=== PATIENT | male | born 1975 | race Caucasian/White ===

== ENCOUNTER 2016-11-28 10:52 | Day surgery (SDC) | payer OTHER ==
[2016-11-28] VITALS (13 sets, daily range): BP systolic 96–111; BP diastolic 54–72; PULSE 50–69; RESP 16–18; Ht 160 cm; Wt 64.6 kg
[~2016-11-28] VITALS: Ht 160 cm; Wt 64.6 kg
[~2016-11-28 10:52] MED LIST: BUPIVACAINE 0.25% (MPF) 30 ML INJ INJ ONE; CEFAZOLIN 2 GM/50 ML (PMX) 50 ML IVPB ONE; POLYMYXIN/BACITRACIN 1L IRRIG IRR ONE; SOD CHLORIDE 0.9% 1,000 ML IV SCH
[2016-11-28] MEDS ORDERED: BUPIVACAINE 0.25% (MPF) 30 ML INJ ONE ×2 (13:20→13:24)
[2016-11-28] MEDS ORDERED: POLYMYXIN/BACITRACIN 1L IRRIG ONE (13:32)
[2016-11-28] MEDS ORDERED: FENTAnyl 50 MCG/ML VIAL ONE (13:53)
[2016-11-28] MEDS ORDERED: PROPOFOL 40 ML ONE (14:15)
[2016-11-28] MEDS ORDERED: NEOSTIGMINE 3 MG/3 ML SYRINGE ONE (14:15)
[2016-11-28] MEDS ORDERED: SUCCINYLCHOLINE CHLORIDE 100 MG/5 ML SYG IV ONE (14:15)
[2016-11-28] MEDS ORDERED: LIDOCAINE 2% (SDV) 5 ML INJ ONE (14:15)
[2016-11-28] MEDS ORDERED: CEFAZOLIN 1 GM INJ ONE (14:15)
[2016-11-28] MEDS ORDERED: ROCURONIUM 50 MG INJ ONE (14:15)
[2016-11-28] MEDS ORDERED: GLYCOPYRROLATE 0.4 MG INJ ONE (14:15)
[2016-11-28] MEDS ORDERED: ONDANSETRON 4 MG INJ IV PRN (14:30)
[2016-11-28] MEDS ORDERED: HYDROmorphONE (0.2 MG/ML) 10ML SYG IV PRN ×2 (14:30)
[2016-11-28] MEDS ORDERED: DIPHENHYDRAMINE 50 MG INJ IV PRN (14:30)
[2016-11-28] MEDS ORDERED: FENTAnyl 50 MCG/ML VIAL IV PRN ×2 (14:30)
[2016-11-28] MEDS ORDERED: MEPERIDINE 25 MG INJ IV PRN (14:30)
[2016-11-28] MEDS ORDERED: METOCLOPRAMIDE 10 MG INJ IV PRN (14:30)
[2016-11-28] MEDS: HYDROmorphONE (0.2 MG/ML) 10ML SYG IV PRN ×2 (14:46→15:24)
[2016-11-28] MEDS ORDERED: HYDROCODONE/APAP (5/325) TAB PO ONE (15:00)
--- NOTE | 2016-11-28 15:20 | OPR ---
DATE OF OPERATION: 11/28/2016 INDICATION: This is a 41-year-old male with a left inguinal hernia. He requests surgical repair. Risks, alternatives, benefits, and personnel were discussed with the patient. The patient expressed understanding and consents to the operation. PREOPERATIVE DIAGNOSIS: Left inguinal hernia. POSTOPERATIVE DIAGNOSIS: Left inguinal hernia. OPERATION: Open left inguinal hernia repair with large size UltraPro hernia system mesh. SURGEON: Alxe Cisse MD SPECIMENS: None. COMPLICATIONS: None. ANESTHESIA: General. DESCRIPTION OF PROCEDURE: The patient is taken to the OR and prepped and draped in usual sterile fa shion. Surgical timeout is performed. IV antibiotics are given. Left inguinal oblique incision is made with a 10 blade. Dissection cautery is carried down to the external oblique fascia. Incision is made in the external oblique with a 15 blade. This incision is extended medial inferiorly and l ateral superiorly with Metzenbaum scissors. Cord structures are identified and encircled with a [place] drain. Indirect hernia sac is identified, suture ligated, excised with 0 Vicryl. This is affi xed to the disk portion of the UltraPro hernia system mesh which is also secured in place with runni ng 0 Prolene from the pubic tubercle along the shelving edge of the inguinal ligament and superiorly to the internal oblique with interrupted 3-0 Vicryl. Onlay mesh is secured in a similar fashion wi th a running 0 Prolene from the pubic tubercle along the shelving edge of the inguinal ligament. St raps are created and approximated with interrupted 0 Prolene. Onlay mesh is secured to the internal oblique with interrupted 3-0 Vicryl. External oblique fascia is closed with a running 0 Vicryl, Sc arpa's is closed with interrupted 3-0 Vicryl. Skin is closed using skin akshat. Local anesthesia is injected. Dry dressings are applied. Dictated By: ALEX DEE/FLAQUITO Conf#: [id number] DID#: [id number]
== END 2016-11-28 17:30 | disposition home or self-care (01) ==
LOC: SDS 10:52
PROVIDERS: ATTEND Surgery
DX: K40.90 Unilateral inguinal hernia, without obstruction or gangrene, not specified as recurrent (principal)
CPT/HCPCS: 49505; C1781; J0330; J0690; J1170; J2710; J3010; Z7512; Z7610